=== PATIENT | male | born 1965 | race Caucasian/White ===

== ENCOUNTER 2023-09-16 17:48 | Emergency (ER) | payer BC, SELFPAY ==
[2023-09-16 18:14] VITALS: BP 132/79
--- NOTE | 2023-09-16 20:03 | ED.GENMED ---
History of Present Illness
General
Chief Complaint: DVT/Possible Blood Clot
Source: patient
Time Seen by Provider: 09/16/23 19:45
Travel History
Have you had any contact with someone who has COVID-19?: No
Do you have any symptoms of coronavirus? Fever > 100 degrees, chills, cough, shortness of breath, sore throat, loss of taste or smell, muscle aches, or headache?: No
History of Present Illness
History of Present Illness:
58-year-old male with past medical history of hypertension and hyperlipidemia presenting to the emergency department for evaluation after he had an outpatient ultrasound done at a separate facility earlier today which showed a DVT to the left lower
extremity. He reports about a week or so ago he noticed some swelling to the left lower extremity and had the ultrasound scheduled for today. Patient denies any chest pain, shortness of breath, palpitations, diaphoresis, exertional dyspnea, cough,
hemoptysis or pleurisy. He denies any history of similar. Notes that he recently traveled to [place] at the beginning of August. He states that other than some minor orthopedic issues within his left knee he otherwise has no concerns. He is
scheduled to undergo an injection into the left knee this Saturday.
Past History
Past History
ED Past Medical History: HTN and Hypercholesterolemia
ED Past Surgical History: Orthopedic
Social History
Tobacco: Non-smoker
Alcohol: Occasional
Drug: None
Personal:
Living: with family
Employment: Employed
Review of Systems
Review of Systems
All Other Systems: ROS reviewed and negative except as documented in HPI and ROS
Phy Exam
Physical Exam
Physical Exam:
GENERAL: Alert , in no apparent distress
EYE: conjunctiva clear
Head: Normocephalic atraumatic
NECK: Supple,
ENT: mmm.
LUNGS: no acute respiratory distress
NEUROLOGICAL: Alert and oriented
SKIN: Warm and dry, skin intact.
MUSCULOSKELETAL: well perfused. No obvious edema, easily palpable pulses.
PSYCH: Normal and appropriate interaction.
Scores
Heart Failure Risk
Heart Failure Risk Score: Not Applicable
Heart Score for Chest Pain Patients
STEMI patient?: Not applicable
Withdrawal Assessment of Alcohol
Withdrawal Assessment Completed?: Not applicable
Course
Orders/Labs/Results
Orders:
Orders
09/16/23 20:02
Apixaban [Eliquis] 10 mg PO NOW STA
09/16/23 20:14
CMP [Comprehensive Metabolic Panel] Urgent
09/16/23 20:44
Add On- LAB Urgent
Tests Added?: cbc
09/16/23 20:49
CBC/With Diff [Complete Blood Count/With Diff] Urgent
Abnormal Lab Results
09/16/23
20:49
RBC 4.55 L 10^6/uL
(4.70-6.10)
MPV 10.7 H fL
(7.4-10.4)
09/16/23 20:49
09/16/23 20:14
Vital Signs
Initial and Last Documented VS:
Initial Vital Signs
Temp Pulse Resp BP Pulse Ox
98.3 F 68 18 132/79 99
09/16/23 18:14 09/16/23 18:14 09/16/23 18:14 09/16/23 18:14 09/16/23 18:14
Last Documented Vital Signs
Temp Pulse Resp BP Pulse Ox
98.3 F 67 15 130/70 98
09/16/23 18:14 09/16/23 21:03 09/16/23 21:03 09/16/23 21:03 09/16/23 21:03
MDM/Problems Addressed
MDM/Problems Addressed:
58-year-old male presenting to the emergency department with known DVT of the left lower extremity. He is not have any symptoms that would be suggestive of a pulmonary embolism and he is otherwise hemodynamically Stable. Will check labs prior to
initiating Eliquis. Will start patient on Eliquis here and send him a month supply to his pharmacy. Advise close follow-up with primary care provider. Aware of return precautions to the ER.
*Pulse Oximetry
Patient hypoxic: no
*Critical Care Note
Total Time (30-74mins, 75-104mins- exclusive of procedures): Not Applicable
Data Reviewed
Review of Other/Old Records Reveals: Radiology Studies
Comment
Comment:
Patient's ultrasound shows occlusive venous thrombus in the left proximal to mid femoral vein. There is nonocclusive DVT in the distal femoral vein and popliteal vein. There is occlusive DVT in the left peroneal veins and 1 posterior tibial vein.
Patient Management
Escalation/DeEscalation of care consider admission/obs:
Patient's labs are unremarkable. He was advised of potential side effects with the Eliquis. 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 He will follow-up with
his primary care physician tomorrow morning. Given a month supply of Eliquis. Aware of return precautions but otherwise stable for discharge home.
ED Attending Note
-
Portions of this chart may have been created with voice recognition software.� Occasional wrong word or��sound alike� substitutions may have occurred due to the inherent limitations of voice recognition software.
Discharge Plan
Departure
Patient Disposition: Home (Routine Discharge)
Date of Disposition: 09/16/23
Time of Disposition: 20:45
Patient with high blood pressure during this ER visit?: No
Discharge Problem:
Acute deep vein thrombosis (DVT) of left lower extremity
Instructions: Deep Vein Thrombosis (Blood Clots in the Legs) (DC)
Prescriptions:
New
Eliquis 5 mg tablet
5 mg PO BID Qty: 70 0RF
Rx Instructions:
Take two tabs PO BID x 7 days, Take one tab PO BID remaining days
Referrals:
Liza Perry MD [Family Provider] -
Interventions
Interventions:
*Risk Screen - Suicide Last Done: 09/16/23 21:03
*General Assessment Last Done: 09/16/23 21:03
*Neglect/Abuse Screening Last Done: 09/16/23 21:03
*Nursing Disposition Last Done: 09/16/23 21:03
ED- Cardiac Assessment Last Done: 09/16/23 19:35
ED- Pulmonary Assessment Last Done: 09/16/23 19:35
ED-Peripheral Vascular Assessment Last Done: 09/16/23 19:35
ED-Skin Assessment Last Done: 09/16/23 20:52
Discharge Date and Time
Discharge Date/Time: 09/16/23 21:14
Print Language: [place]
[2023-09-16] MEDS: ELIQUIS 10 MG PO (20:39)
[2023-09-16 20:41] LABS: ALT (SGPT) 21 U/L (0-50); AST (SGOT) 26 U/L (17-59); Albumin 4.8 g/dl (3.5-5.0); Alkaline Phosphatase 49 U/L (38-126); Blood Urea Nitrogen 17 mg/dl (9-20); Calcium 10.1 mg/dl (8.4-10.2); Carbon Dioxide 27 mmol/L (22-30); Chloride 104 mmol/L (98-107); Glucose 91 mg/dl (70-99); Potassium 4.5 mmol/L (3.5-5.1); Sodium 139 mmol/L (135-145); Total Bilirubin 0.6 mg/dl (0.2-1.3); Total Protein 7.2 g/dl (6.3-8.2); eGFR > 60.00
[2023-09-16 20:55] LABS: % Basophils 0.4 % (0-2); % Eosinophils 4.1 % (0-6); % Immature Granulocytes 0.3 % (0-0.5); % Lymphocytes 27.3 % (20.5-51.1); % Neutrophils 60.9 % (42.2-75.2); Absolute Eosinophils 0.3 10^3/uL (0-0.7); Absolute Lymphocytes 2.1 10^3/uL (1.2-3.4); Absolute Monocytes 0.5 10^3/uL (0.1-0.6); Absolute Neutrophils 4.7 10^3/uL (1.4-6.5); Hematocrit 39.6 % (39.0-52.0); Hemoglobin 13.7 g/dL (13.0-18.0); Mean Corp Hgb Conc. 34.6 g/dL (33.0-37.0); Mean Corpuscular Hgb 30.1 pg (27.0-31.0); Mean Platelet Volume 10.7 fL (7.4-10.4); Nucleated Red Blood Cells % 0 % (-); Platelet Count 221 10^3/uL (130-400); Red Blood Cell Count 4.55 10^6/uL (4.70-6.10); Red Cell Dist. Width 13.2 % (11.5-14.5); White Blood Cell Count 7.7 10^3/uL (4.8-10.8)
[2023-09-16 21:03] VITALS: BP 130/70
== END 2023-09-16 21:14 | disposition home or self-care (01) ==
LOC: EMR 17:48
PROVIDERS: Physician Assistant Medical; EMERGENCY PHYSICIAN Emergency Medicine; FAMILY PHYSICIAN Family Medicine
DX: I82.402 Acute embolism and thrombosis of unspecified deep veins of left lower extremity (principal)
CPT/HCPCS: 99283; 80053; 85025